=== PATIENT | male | born 1955 | race Caucasian/White ===

== ENCOUNTER 2021-05-17 16:48 | Emergency (ER) | payer BC, MEDICARE ==
--- NOTE | 2021-05-17 17:41 | EDM.PDOC ---
ED HPI GENERAL MEDICAL PROBLEM - General Chief Complaint: General Stated Complaint: ??? Time Seen by Provider: 05/17/21 17:15 Source of Information: Reports: Patient, Family. Denies: Old Records History Limitations: Reports: Other (no old records) - History of Present Illness INITIAL COMMENTS - FREE TEXT/NARRATIVE: 66 yo male presents along with his daughter out of concern for Covid or an MT. He lives on [place], [place] and has not been feeling well so came here to be seen by his daughter in the clinic. There has not been a fever or cough or SOB. He has been having recurrent flank pain from kidney stones so came over to the hospital for an outpatient CT scan that showed only stones in his kidneys, not ureters. He had also a CXR that suggested R basilar pneumonia and possibly Covid. He had labs in the clinic about 1330h today that showed a GFR of about 55 and an elevated Trop. His BP in the clinic was OK, but is high here. He had a syncopal spell at the clinic when having his blood drawn, this has happned to a lesser extent in the past. UA in clinic was fairly unremarkable. Onset: Gradual, Unknown/Unsure Duration: Day(s):, Waxing/Waning Location: Reports: Other (flank) Quality: Reports: Other (no current pain) Severity: Mild (overall current level of illness) Improves with: Reports: None Worsens with: Reports: Other (unsure) Context: Reports: Other (See HPI) Associated Symptoms: Reports: Malaise, Nausea/Vomiting (one episode with blood draw today only), Syncope (with blood draw today only). Denies: Chest Pain, Cough, Fever/Chills, Shortness of Breath Treatments MOLD CLOSER: Reports: Other (see below) (none) - Related Data Allergies Allergy/AdvReac Type Severity Reaction Status Date / Time No Known Allergies Allergy Verified 07/01/13 10:43 Home Meds: Home Meds NK [No Known Home Meds] 07/01/13 [History] ED ROS GENERAL - Review of Systems Review Of Systems: See Below Constitutional: Reports: Malaise HEENT: Reports: No Symptoms Respiratory: Denies: Shortness of Breath, Cough, Sputum Cardiovascular: Reports: No Symptoms GI/Abdominal: Reports: Nausea, Vomiting (x 1) : Reports: No Symptoms Musculoskeletal: Reports: No Symptoms ED EXAM, GENERAL - Physical Exam Exam: See Below Exam Limited By: No Limitations General Appearance: Alert, WD/WN, No Apparent Distress Eye Exam: Bilateral Eye: Normal Inspection Ears: Normal External Exam, Normal Canal, Hearing Grossly Normal Ear Exam: Bilateral Ear: Auricle Normal, Canal Normal Nose: Normal Inspection, No Blood Throat/Mouth: Normal Inspection, Normal Lips, Normal Oropharynx, Normal Voice, No Airway Compromise Head: Atraumatic, Normocephalic Neck: Normal Inspection Respiratory/Chest: No Respiratory Distress, No Accessory Muscle Use, Rhonchi (R base). No: Lungs Clear, Normal Breath Sounds Cardiovascular: Regular Rate, Rhythm, No Edema GI/Abdominal: Soft, No Distention, Other (mild LUQ tenderness) Back Exam: No: CVA Tenderness (R), CVA Tenderness (L) Extremities: Normal Inspection, Normal Range of Motion, Non-Tender, No Pedal Edema. No: Pedal Edema Neurological: Alert, Oriented, CN II-XII Intact, Normal Cognition, No Motor/Sensory Deficits Psychiatric: Normal Affect, Normal Mood Skin Exam: Warm, Dry, Intact, Normal Color, No Rash Course - Orders/Labs/Meds Orders: Active Orders 24 hr Category Date Time Status EKG Documentation Completion [RC] ASDIRECTED Care 05/17/21 17:04 Active CORONAVIRUS (COVID19) [facility] Stat Lab 05/17/21 17:39 Ordered EKG 12 Lead [EK] Routine Ther 05/17/21 17:04 Ordered Labs: Laboratory Tests 05/17/21 05/17/21 05/17/21 Range/Units 17:14 17:14 17:14 WBC 4.1 (3.2-10.1) x10-3/uL RBC 4.99 (3.90-5.90) x10(6)uL Hgb 16.6 (12.9-17.7) g/dL Hct 49.3 (38.3-50.1) % MCV 98.8 H (80.8-98.7) fL MCH 33.3 (27.0-33.3) pg MCHC 33.7 (28.7-35.3) g/dL RDW 12.9 (12.4-15.0) % Plt Count 156 (117-477) x10(3)uL Sodium 135 (135-145) mmol/L Potassium 4.4 (3.5-5.3) mmol/L Chloride 99 L (100-110) mmol/L Carbon Dioxide 27 (21-32) mmol/L BUN 22 H (7-18) mg/dL Creatinine 1.4 H (0.70-1.30) mg/dL Est Cr Clr Drug Dosing TNP Estimated GFR (MDRD) 51 L (>60) BUN/Creatinine Ratio 15.7 (9-20) Glucose 131 H (80-116) mg/dL Calcium 8.6 (8.6-10.2) mg/dL Troponin I 7.2 (4.0-60.3) pg/mL C-Reactive Protein (0.5-0.9) mg/dL 05/17/21 Range/Units 17:14 WBC (3.2-10.1) x10-3/uL RBC (3.90-5.90) x10(6)uL Hgb (12.9-17.7) g/dL Hct (38.3-50.1) % MCV (80.8-98.7) fL MCH (27.0-33.3) pg MCHC (28.7-35.3) g/dL RDW (12.4-15.0) % Plt Count (117-477) x10(3)uL Sodium (135-145) mmol/L Potassium (3.5-5.3) mmol/L Chloride (100-110) mmol/L Carbon Dioxide (21-32) mmol/L BUN (7-18) mg/dL Creatinine (0.70-1.30) mg/dL Est Cr Clr Drug Dosing Estimated GFR (MDRD) (>60) BUN/Creatinine Ratio (9-20) Glucose (80-116) mg/dL Calcium (8.6-10.2) mg/dL Troponin I (4.0-60.3) pg/mL C-Reactive Protein 4.6 H* (0.5-0.9) mg/dL Departure - Departure Time of Disposition: 18:00 Disposition: Home, Self-Care 01 Condition: Fair Clinical Impression: RLL pneumonia Qualifiers: Pneumonia type: due to unspecified organism Qualified Code(s): J18.9 - Pneumonia, unspecified organism HTN (hypertension) Qualifiers: Hypertension type: unspecified Qualified Code(s): I10 - Essential (primary) hypertension - Discharge Information *PRESCRIPTION DRUG MONITORING PROGRAM REVIEWED*: Not Applicable *COPY OF PRESCRIPTION DRUG MONITORING REPORT IN PATIENT TOD: Not Applicable Instructions: Community-Acquired Pneumonia, Adult Forms: ED Department Discharge Additional Instructions: Take doxycycline every 12 hrs as directed. Recheck if worse. Keep an eye on your BP. Your Covid test will be available in about 48 hrs. - My Orders Last 24 Hours: My Active Orders 05/17/21 17:04 EKG Documentation Completion [RC] ASDIRECTED EKG 12 Lead [EK] Routine 05/17/21 17:39 CORONAVIRUS (COVID19) [facility] Stat - Assessment/Plan Last 24 Hours: My Active Orders 05/17/21 17:04 EKG Documentation Completion [RC] ASDIRECTED EKG 12 Lead [EK] Routine 05/17/21 17:39 CORONAVIRUS (COVID19) [facility] Stat
[2021-05-18 21:30] VITALS: BP 145/76; PULSE 68
[2021-05-20 18:09] LABS: CORNONAVIRUS (COVID19) CSH-NRL Positive (Negative)
--- NOTE | 2021-05-22 19:34 | PCM.EKG ---
#1 Interpretation EKG Date: 05/17/21 Rhythm: NSR [place]: Normal P-Wave: Present ST-T: Normal GA/PQ Interval: 210 Comparison: NA - No Prior EKG
== END 2021-05-18 18:24 | disposition home or self-care (01) ==
LOC: FB.ED 16:48
DX: U07.1 COVID-19 (principal); J12.82 Pneumonia due to coronavirus disease 2019; I10 Essential (primary) hypertension
CPT/HCPCS: 36415; 80048; 84484; 85027; 86140; 93005; 99284-25; U0003